=== PATIENT | female | born 1935 | race Caucasian/White ===

== ENCOUNTER 2017-10-07 10:57 | Outpatient (CLI) | payer MEDICARE, OTHER ==
[2017-10-07 11:46] LABS: PT - PROTHROMBIN TIME 32.7 secs (9.9-12.6)
== END 2017-10-07 10:58 | disposition home or self-care (01) ==
LOC: LAB 10:57
PROVIDERS: ATTEND Internal Medicine Medical Oncology
DX: C50.919 Malignant neoplasm of unspecified site of unspecified female breast (principal); I26.99 Other pulmonary embolism without acute cor pulmonale
CPT/HCPCS: 36415; 85610

== ENCOUNTER 2017-10-09 20:22 | Outpatient (CLI) | payer MEDICARE, OTHER | END 2017-10-09 20:23 | disposition short-term general hospital (02) | LOC: EMS 20:22 | PROVIDERS: ATTEND Surgery | DX: R06.02 Shortness of breath (principal); R07.9 Chest pain, unspecified | CPT/HCPCS: A0425; A0427 ==

== ENCOUNTER 2017-10-29 11:11 | Outpatient (CLI) | payer MEDICARE, OTHER ==
[2017-10-29 12:29] LABS: INR 12.7 (0.8-1.2)
== END 2017-10-29 11:12 | disposition home or self-care (01) ==
LOC: LAB 11:11
PROVIDERS: ATTEND Internal Medicine Medical Oncology
DX: I50.32 Chronic diastolic (congestive) heart failure (principal); I26.99 Other pulmonary embolism without acute cor pulmonale
CPT/HCPCS: 36415; 85610

== ENCOUNTER 2017-10-29 14:46 | Emergency (ER) | payer MEDICARE, OTHER ==
--- NOTE | 2017-10-29 15:52 | ED Physician Documentation ---
History of Present Illness - Stated complaint Stated Complaint: NEEDS VITAMIN K - Chief complaint Chief Complaint: General - History obtained from History obtained from: Patient - History of Present Illness Timing: Today (had INR checked and it was very elevated. Has been on it just 2 weeks and is on 5 mg daily right now. Was on abx 2 weeks ago, not currently. No unusual diet.) Review of Systems Constitutional: denies: Fever, Chills Nose: denies: Epistaxis GI: denies: Bloody / black stool : denies: Vaginal bleeding Neurologic: denies: Generalized weakness, Focal weakness, Numbness, Headache, Head injury PD PAST MEDICAL HISTORY - Past Medical History Cardiovascular: Hypertension, High cholesterol Endocrine/Autoimmune: None GI: GERD MARKET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: Breast cancer : Other HEENT: Chronic vision loss Psych: None Musculoskeletal: Other Derm: None - Past Surgical History Past Surgical History: Yes General: Colonoscopy, EGD, Other Ortho: Other /[employer]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: Hysterectomy, Other Cardiovascular: Coronary stent, Vascular surgery, Other - Present Medications Home Medications: Ambulatory Orders Medication Instructions Recorded Confirmed Amlodipine Besylate [Norvasc] 10 mg PO DAILY 02/24/14 02/17/16 Aspirin 325 mg PO DAILY 02/24/14 02/17/16 Atorvastatin Calcium [Lipitor] 40 mg PO DAILY 02/24/14 02/17/16 Cholecalciferol (Vitamin D3) 1,000 unit PO DAILY 02/24/14 02/17/16 [Vitamin D] Clopidogrel Bisulfate [Plavix] 75 mg PO DAILY 02/24/14 02/17/16 Isosorbide Dinitrate 60 mg PO DAILY 02/24/14 02/17/16 Lisinopril [Prinivil] 10 mg PO BID 02/24/14 02/17/16 Metoprolol Tartrate [Lopressor] 50 mg PO BID 02/24/14 02/17/16 Multivitamin with Minerals [One 1 each PO DAILY 02/24/14 02/17/16 Daily] Pentoxifylline 400 mg PO BID 02/24/14 02/17/16 Phenytoin Sodium Extended 100 mg PO DAILY 02/24/14 02/17/16 [Dilantin] Dexamethasone 4 mg PO TID 02/17/16 02/17/16 HYDROcod/ACETAM 5/325 [[place] 5/325] 1 - 2 ea PO Q6H PRN #20 tablet 02/17/16 Morphine Sulfate [Morphine Sulfate 15 mg PO BID PRN 02/17/16 02/17/16 ER] Oxycodone HCl 5 mg PO Q4HR PRN 02/17/16 02/17/16 - Allergies Allergies/Adverse Reactions: Allergies Allergy/AdvReac Type Severity Reaction Status Date / Time Penicillins Allergy Itching Verified 10/29/17 14:56 - Social History Does the pt smoke?: Yes Smoking Status: Current every day smoker Does the pt drink ETOH?: Yes Does the pt have substance abuse?: No - Immunizations Immunizations are current?: No PD ED PE NORMAL - Vitals Vital signs reviewed: Yes - General General: Alert and oriented X 3, No acute distress, Well developed/nourished - HEENT HEENT: Atraumatic - Neck Neck: Supple, no meningeal sign, No adenopathy - Cardiac Cardiac: RRR, No murmur - Respiratory Respiratory: Clear bilaterally - Derm Derm: Normal color, Warm and dry - Extremities Extremities: No tenderness to palpate, Normal ROM s pain - Neuro Neuro: Alert and oriented X 3, No motor deficit, Normal speech Eye Opening: Spontaneous Motor: Obeys Commands Verbal: Oriented GCS Score: 15 Results - Vitals Vitals: Oxygen O2 Source Room air - Labs Labs: Laboratory Tests 10/29/17 16:12 Whole Blood INR > 8.0 H* PD MEDICAL DECISION MAKING - ED course Complexity details: reviewed results (elevated INR, just starting coumadin the past 2 weeks. Had been on abx 2 weeks ago, not currently. No headache, chest pain. ), considered differential, d/w patient Departure - Departure Disposition: 01 Home, Self Care Clinical Impression: Supratherapeutic INR Condition: Stable Record reviewed to determine appropriate education?: Yes Comments: Recheck tomorrow for repeat INR level. Based on that, to decide if the repeat dose of vitamin K is appropriate, which it likely will be. Based on the level tomorrow, you might need to come the next day as well for INR check, to see how it is trending down. Hold your Coumadin for now. Discharge Date/Time: 10/29/17 16:55
[2017-10-29] MEDS ORDERED: PHYTONADIONE 10 MG/ML AMP PO STA (16:17)
[2017-10-29 16:31] VITALS: BP 156/66
[2017-10-29] MEDS ORDERED: CHERRY SYRUP 10 ML UDC PO ONE (16:37)
== END 2017-10-29 16:55 | disposition home or self-care (01) ==
LOC: ED 14:46
DX: R79.1 Abnormal coagulation profile (principal); I11.0 Hypertensive heart disease with heart failure; I50.32 Chronic diastolic (congestive) heart failure; E78.00 Pure hypercholesterolemia, unspecified; C50.919 Malignant neoplasm of unspecified site of unspecified female breast; F17.200 Nicotine dependence, unspecified, uncomplicated; Z79.82 Long term (current) use of aspirin; Z95.5 Presence of coronary angioplasty implant and graft
CPT/HCPCS: 36415; 85610; 99283; A9270

== ENCOUNTER 2017-10-30 10:19 | Outpatient (CLI) | payer MEDICARE, OTHER ==
[2017-10-30 10:38] LABS: INR 1.7 (0.8-1.2); PT - PROTHROMBIN TIME 19.2 secs (9.9-12.6)
== END 2017-10-30 10:20 | disposition home or self-care (01) ==
LOC: LAB 10:19
PROVIDERS: ATTEND Internal Medicine Medical Oncology
DX: I26.99 Other pulmonary embolism without acute cor pulmonale (principal); I50.32 Chronic diastolic (congestive) heart failure
CPT/HCPCS: 36415; 85610

== ENCOUNTER 2017-10-31 11:15 | Outpatient (CLI) | payer MEDICARE, OTHER ==
[2017-10-31 11:49] LABS: INR 1.3 (0.8-1.2)
== END 2017-10-31 11:16 | disposition home or self-care (01) ==
LOC: LAB 11:15
PROVIDERS: ATTEND Internal Medicine Medical Oncology
DX: I26.99 Other pulmonary embolism without acute cor pulmonale (principal); Z79.01 Long term (current) use of anticoagulants
CPT/HCPCS: 36415; 85610

== ENCOUNTER 2017-12-24 21:06 | Outpatient (CLI) | payer MEDICARE, OTHER | END 2017-12-24 21:07 | disposition short-term general hospital (02) | LOC: EMS 21:06 | PROVIDERS: ATTEND Surgery | DX: R06.00 Dyspnea, unspecified (principal); R10.9 Unspecified abdominal pain | CPT/HCPCS: A0425; A0427 ==